=== PATIENT | female | born 2005 | race Two or more races ===

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

== ENCOUNTER → 2023-02-08 | Outpatient (CLI) | payer BC, MEDICAID, OTHER ==
[2023-02-08 11:11] LABS: HEMATOCRIT 36.8 % (36.0-47.0); HEMOGLOBIN 12.5 g/dl (12.0-15.5); MEAN CORPUSCULAR HEMOGLOBIN 31.6 pg (27.0-33.0); MEAN CORPUSCULAR VOLUME 92.9 fl (80.0-96.0); PLATELET COUNT, AUTOMATED 212 10^3/uL (150-450); RED BLOOD COUNT 3.96 10^6/uL (4.00-5.40)
[2023-02-08 11:40] LABS: TOTAL PROTEIN,RANDOM URINE 65.6 MG/DL (0.0-14.0)
[2023-02-08 11:44] LABS: URIC ACID 4.8 MG/DL (3.1-7.8)
[2023-02-08 11:45] LABS: CREATININE,RANDOM URINE 145.9 MG/DL
[2023-02-08 11:47] LABS: ALBUMIN 2.7 G/DL (3.2-5.2); ALKALINE PHOSPHATASE 155 U/L (46-116); ALT/SGPT 10 U/L (7.0-40); AST/SGOT 15 U/L (<34); BILIRUBIN,DIRECT < 0.1 MG/DL (<0.4); BILIRUBIN,TOTAL 0.4 MG/DL (0.3-1.2); BLOOD UREA NITROGEN 6 MG/DL (9-23); CREATININE FOR GFR 0.45 MG/DL (0.55-1.30); TOTAL PROTEIN 5.6 G/DL (5.7-8.2)
== END ==
LOC: M LAB 10:07
PROVIDERS: ATTEND Obstetrics & Gynecology Obstetrics
DX: O13.3 Gestational [pregnancy-induced] hypertension without significant proteinuria, third trimester (principal)

== ENCOUNTER 2024-01-18 10:55 | Day surgery (SDC) | payer OTHER ==
[~2024-01-18] VITALS: Ht 167.6 cm; Wt 76.2 kg
[~2024-01-18 10:55] MED LIST: AMPH1CAP5 PO
[2024-01-18] MEDS: LR 1,000 ML IV SCH (11:26)
[2024-01-18] MEDS ORDERED: MIDAZOLAM INJ 2MG/2ML VIAL As Ordered ONE (11:46)
[2024-01-18] MEDS ORDERED: propofoL 200 MG/20 ML VIAL As Ordered ONE (11:46)
[2024-01-18] MEDS ORDERED: fentaNYL 100 MCG/2 ML INJECTION As Ordered ONE (11:46)
[2024-01-18] MEDS ORDERED: ONDANSETRON 4MG 2ML VIAL As Ordered ONE (11:47)
[2024-01-18] MEDS ORDERED: ROCURONIUM BROMIDE 50MG/5ML VIAL As Ordered ONE (11:47)
[2024-01-18] MEDS ORDERED: LIDOCAINE 2% 100MG/5ML SDV (FOR ANES.) As Ordered ONE (11:47)
[2024-01-18] MEDS ORDERED: dexmedeTOMIDine (4MCG/ML)200MCG/50ML BTL (PRECEDEX) As Ordered ONE (12:26)
[2024-01-18] MEDS ORDERED: SUGAMMADEX SODIUM 500 MG/5 ML VIAL (BRIDION) As Ordered ONE (12:43)
[2024-01-18] MEDS ORDERED: MEPERIDINE 25 MG/ML 1ML VIAL IV PRN (13:15)
[2024-01-18] MEDS ORDERED: LR 1,000 ML IV SCH ×2 (13:15→13:35)
[2024-01-18] MEDS ORDERED: METOCLOPRAMIDE INJ 10MG/2ML VIAL IV PRN (13:15)
[2024-01-18] MEDS ORDERED: ONDANSETRON 4MG 2ML VIAL IV PRN (13:15)
[2024-01-18] MEDS ORDERED: diphenhydrAMINE 50MG/ML VIAL IV PRN (13:15)
[2024-01-18] MEDS ORDERED: fentaNYL 100 MCG/2 ML INJECTION IV PRN (13:15)
[2024-01-18] MEDS ORDERED: HYDROcodone/APAP LIQUID 7.5-325MG 15ML UDC (LORTAB ELIXIR) PO PRN (13:35)
[2024-01-18] MEDS: HYDROMORPHONE HCL 0.5 MG/ 0.5 ML SYRINGE IV PRN (13:35)
[2024-01-18] MEDS: oxyCODONE 5MG TAB PO PRN (14:29)
[2024-01-18 14:45] VITALS: BP 132/76; TEMP 98.4; O2SAT 100
== END 2024-01-18 15:12 | disposition home or self-care (01) ==
LOC: M SDC 10:55
PROVIDERS: ATTEND Otolaryngology
DX: J35.03 Chronic tonsillitis and adenoiditis (principal); F41.9 Anxiety disorder, unspecified; G43.909 Migraine, unspecified, not intractable, without status migrainosus; Z79.899 Other long term (current) drug therapy
CPT/HCPCS: 42826; 88302; J0665; J1100; J1170; J2250; J2405; J3010

== ENCOUNTER 2024-01-18 17:03 | Observation (INO) | payer OTHER ==
[~2024-01-18] VITALS: Ht 170.2 cm; Wt 72.7 kg
[2024-01-18] MEDS: NS 500 ML IV ONE (17:40)
[2024-01-18] MEDS: HYDROMORPHONE HCL 0.5 MG/ 0.5 ML SYRINGE IV ONE (17:55)
[2024-01-18] MEDS ORDERED: HOME MED LIST COMPLETE! XX SCH (19:15)
[2024-01-18] MEDS: LORazepam 2 MG/ML 1ML VIAL IV STA (19:22)
[2024-01-18] MEDS ORDERED: HYDROcodone/APAP LIQUID 7.5-325MG 15ML UDC (LORTAB ELIXIR) PO PRN (20:05)
[2024-01-18] MEDS: LR 1,000 ML IV SCH (20:05)
[2024-01-18 20:09] LABS: HEMATOCRIT 38.9 % (36.0-47.0); HEMOGLOBIN 13.7 g/dl (12.0-15.5); MEAN CORPUSCULAR HEMOGLOBIN 31.3 pg (27.0-33.0); MEAN CORPUSCULAR HGB CONC 35.2 g/dl (32.0-36.5); MEAN CORPUSCULAR VOLUME 88.8 fl (80.0-96.0); PLATELET COUNT, AUTOMATED 294 10^3/uL (150-450); RED BLOOD COUNT 4.38 10^6/uL (4.00-5.40); WHITE BLOOD COUNT 11.7 10^3/uL (4.0-10.0)
[2024-01-18] MEDS ORDERED: hydrOXYzine 10MG/5ML SYRUP PO PRN (20:10)
[2024-01-18] MEDS ORDERED: ACETAMINOPHEN 325MG/10.15ML UDC GT PRN (20:15)
[2024-01-18 20:26] LABS: INR 1.11
[2024-01-18 20:30] VITALS: BP 142/88; TEMP 99.7; O2SAT 96
[2024-01-18 20:39] LABS: ALBUMIN 4.5 G/DL (3.2-5.2); ALKALINE PHOSPHATASE 60 U/L (46-116); ALT/SGPT 14 U/L (7.0-40); AST/SGOT 19 U/L (<34); BLOOD UREA NITROGEN 10 MG/DL (9-23); CALCIUM LEVEL 9.7 MG/DL (8.5-10.1); CARBON DIOXIDE LEVEL 22 MMOL/L (20-31); CHLORIDE LEVEL 109 MMOL/L (98-107); CREATININE FOR GFR 0.55 MG/DL (0.55-1.30); GLUCOSE, FASTING 112 MG/DL (60-100); MAGNESIUM LEVEL 1.9 MG/DL (1.8-2.4); SODIUM LEVEL 141 MMOL/L (136-145); TOTAL PROTEIN 7.3 G/DL (5.7-8.2)
[2024-01-18 21:01] LABS: HCG, SERUM QUALITATIVE NEGATIVE (NEGATIVE)
[2024-01-18] MEDS: KETOROLAC 30 MG/ML 1ML VIAL IV SCH (21:06)
[2024-01-18] MEDS: HYDROcodone/APAP LIQUID 7.5-325MG 15ML UDC (LORTAB ELIXIR) PO PRN (23:48)
[2024-01-19] VITALS (7 sets, daily range): BP systolic 123–133; BP diastolic 67–86; TEMP 96.6–98.3; O2SAT 97–100
[2024-01-19] MEDS ORDERED: ACETAMINOPHEN 325MG/10.15ML UDC PO PRN (03:45)
[2024-01-19] MEDS ORDERED: HYDROcodone/APAP LIQUID 7.5-325MG 15ML UDC (LORTAB ELIXIR) PO ONE (03:45)
[2024-01-19] MEDS ORDERED: HYDROMORPHONE HCL 0.5 MG/ 0.5 ML SYRINGE IV PRN (04:00)
[2024-01-19] MEDS: ACETAMINOPHEN *IV* 1,000 MG in IV 1 EA IV ONE (04:21)
[2024-01-19] MEDS: HYDROMORPHONE HCL 0.5 MG/ 0.5 ML SYRINGE IV PRN (05:22)
[2024-01-19 07:18] LABS: HEMATOCRIT 35.1 % (36.0-47.0); HEMOGLOBIN 12.3 g/dl (12.0-15.5); MEAN CORPUSCULAR HEMOGLOBIN 31.6 pg (27.0-33.0); MEAN CORPUSCULAR VOLUME 90.2 fl (80.0-96.0); PLATELET COUNT, AUTOMATED 255 10^3/uL (150-450); RED BLOOD COUNT 3.89 10^6/uL (4.00-5.40); WHITE BLOOD COUNT 10.5 10^3/uL (4.0-10.0)
[2024-01-19 07:37] LABS: BLOOD UREA NITROGEN 10 MG/DL (9-23); CALCIUM LEVEL 9.2 MG/DL (8.5-10.1); CARBON DIOXIDE LEVEL 23 MMOL/L (20-31); CHLORIDE LEVEL 109 MMOL/L (98-107); CREATININE FOR GFR 0.53 MG/DL (0.55-1.30); GLUCOSE, FASTING 91 MG/DL (60-100); POTASSIUM SERUM 3.9 MMOL/L (3.5-5.1); SODIUM LEVEL 141 MMOL/L (136-145)
[2024-01-19] MEDS: ONDANSETRON 4MG 2ML VIAL IV PRN (09:43)
[2024-01-19] MEDS: IBUPROFEN 100MG 5ML SUSP UDC DYE FREE PO SCH (12:43)
[2024-01-19] MEDS ORDERED: HYDROcodone/APAP LIQUID 7.5-325MG 15ML UDC (LORTAB ELIXIR) PO PRN (20:50)
[2024-01-19] MEDS: HYDROcodone/APAP LIQUID 7.5-325MG 15ML UDC (LORTAB ELIXIR) PO PRN (22:00)
[2024-01-20] VITALS: BP 121/73; TEMP 97.3; O2SAT 99
[2024-01-20] MEDS: IBUPROFEN 100MG 5ML SUSP UDC DYE FREE PO PRN (00:24)
[2024-01-20 04:00] VITALS: BP 123/71; TEMP 98; O2SAT 98
[2024-01-20 08:00] VITALS: BP 145/83; TEMP 98.5; O2SAT 99
[2024-01-20] MEDS ORDERED: IBUP-1824 PO (10:36)
[2024-01-20] MEDS ORDERED: IBUPROFEN 100MG 5ML SUSP UDC DYE FREE PO PRN (12:35)
[2024-01-20] MEDS ORDERED: ONDA4TAB6 PO (23:54)
== END 2024-01-20 12:07 | disposition home or self-care (01) ==
LOC: M ED 17:03 → M ED INP 18:59 → M PED 20:30
PROVIDERS: ADMIT Internal Medicine; ATTEND Internal Medicine
DX: J95.830 Postprocedural hemorrhage of a respiratory system organ or structure following a respiratory system procedure (principal); G89.18 Other acute postprocedural pain; R13.10 Dysphagia, unspecified; F41.9 Anxiety disorder, unspecified; F90.9 Attention-deficit hyperactivity disorder, unspecified type; Z79.899 Other long term (current) drug therapy
CPT/HCPCS: 36415; 70490; 80048; 80053; 83735; 84703; 85027; 85610; 93041; 96365; 96375; 96376; 99285; J0131; J1170; J1885; J2060; J2405

== ENCOUNTER 2024-01-20 20:33 | Emergency (ER) | payer OTHER ==
[~2024-01-20] VITALS: Ht 167.6 cm; Wt 77.6 kg
[~2024-01-20 20:33] MED LIST changes: +IBUP-1824 PO
[2024-01-20] MEDS: KETOROLAC 30 MG/ML 1ML VIAL IV ONE (22:17)
[2024-01-20] MEDS: ONDANSETRON 4MG 2ML VIAL IV ONE (22:18)
[2024-01-20 22:28] LABS: BASO % 0.6 % (0.0-1.0); EOS # 0.1 10^3/uL (0.0-0.5); EOS % 1.2 % (0.0-3.0); HEMATOCRIT 34.3 % (36.0-47.0); LYMPH # 2.2 10^3/uL (1.5-5.0); MEAN CORPUSCULAR HEMOGLOBIN 31.4 pg (27.0-33.0); MEAN CORPUSCULAR VOLUME 89.8 fl (80.0-96.0); MONO # 0.6 10^3/uL (0.0-0.8); MONO % 9.5 % (2.0-8.0); NEUTROPHILS # 3.7 10^3/uL (1.5-8.5); NEUTROPHILS % 55.5 % (36.0-66.0); PLATELET COUNT, AUTOMATED 213 10^3/uL (150-450); RED BLOOD COUNT 3.82 10^6/uL (4.00-5.40); WHITE BLOOD COUNT 6.6 10^3/uL (4.0-10.0)
[2024-01-20] MEDS ORDERED: ONDA4TAB6 PO (23:54)
[2024-01-20 23:55] VITALS: BP 144/98; TEMP 98.2; O2SAT 99
[2024-01-20] MEDS: ONDANSETRON 4MG ORAL DISINTEGRATING TAB PO ONE (23:59)
== END 2024-01-21 00:01 | disposition home or self-care (01) ==
LOC: M ED 20:33
DX: G89.18 Other acute postprocedural pain (principal); Z79.1 Long term (current) use of non-steroidal anti-inflammatories (NSAID); Z79.899 Other long term (current) drug therapy
CPT/HCPCS: 80047; 85025; 96374; 96375; 99284; J1885; J2405

== ENCOUNTER 2024-01-29 22:27 | Observation (INO) | payer OTHER ==
[~2024-01-29] VITALS: Ht 167.6 cm; Wt 73.4 kg
[2024-01-29] MEDS: OXYMETAZOLINE 0.05% NASAL SPRAY (AFRIN) As Ordered ONE (00:28)
[~2024-01-29 22:27] MED LIST changes: +ONDA4TAB6 PO
[2024-01-29] MEDS: NS 1,000 ML IV ONE (23:32)
[2024-01-29] MEDS: MORPHINE 2 MG/ML 1ML VIAL IV ONE (23:33)
[2024-01-29] MEDS: ONDANSETRON 4MG 2ML VIAL IV ONE (23:33)
[2024-01-29 23:36] LABS: BASO % 0.5 % (0.0-1.0); EOS # 0.1 10^3/uL (0.0-0.5); EOS % 1.6 % (0.0-3.0); HEMOGLOBIN 12.3 g/dl (12.0-15.5); LYMPH # 2.2 10^3/uL (1.5-5.0); LYMPH % 29.6 % (24.0-44.0); MEAN CORPUSCULAR HEMOGLOBIN 31.4 pg (27.0-33.0); MEAN CORPUSCULAR HGB CONC 35.1 g/dl (32.0-36.5); MEAN CORPUSCULAR VOLUME 89.3 fl (80.0-96.0); MONO # 0.6 10^3/uL (0.0-0.8); MONO % 8.7 % (2.0-8.0); NEUTROPHILS # 4.4 10^3/uL (1.5-8.5); NEUTROPHILS % 59.5 % (36.0-66.0); PLATELET COUNT, AUTOMATED 274 10^3/uL (150-450); RED BLOOD COUNT 3.92 10^6/uL (4.00-5.40); WHITE BLOOD COUNT 7.3 10^3/uL (4.0-10.0)
[2024-01-29] MEDS: dexAMETHasone 20MG/5ML VIAL IV ONE (23:40)
[2024-01-29] MEDS ORDERED: propofoL 200 MG/20 ML VIAL As Ordered ONE (23:40)
[2024-01-29] MEDS ORDERED: SUCCINYLCHOLINE 100MG/5ML SYRINGE As Ordered ONE (23:40)
[2024-01-29] MEDS ORDERED: MIDAZOLAM INJ 2MG/2ML VIAL As Ordered ONE (23:40)
[2024-01-29] MEDS ORDERED: fentaNYL 100 MCG/2 ML INJECTION As Ordered ONE (23:41)
[2024-01-29] MEDS ORDERED: LIDOCAINE W/EPINEPHRINE 1% 20ML VIAL As Ordered ONE (23:47)
[2024-01-29 23:55] LABS: INR 1.18; PARTIAL THROMBOPLASTIN TIME 28.2 SECONDS (24.8-34.2); PROTHROMBIN TIME 14.7 SECONDS (12.5-14.5)
[2024-01-29] MEDS ORDERED: LIDOCAINE 2% 100MG/5ML SDV (FOR ANES.) As Ordered ONE (23:57)
[2024-01-30] VITALS (7 sets, daily range): BP systolic 122–139; BP diastolic 62–79; TEMP 97.8–98.7; O2SAT 95–100
[2024-01-30 00:01] LABS: BLOOD UREA NITROGEN 16 MG/DL (9-23); CALCIUM LEVEL 9.5 MG/DL (8.5-10.1); CARBON DIOXIDE LEVEL 26 MMOL/L (20-31); CHLORIDE LEVEL 105 MMOL/L (98-107); CREATININE FOR GFR 0.54 MG/DL (0.55-1.30); GLUCOSE, FASTING 98 MG/DL (60-100); POTASSIUM SERUM 3.7 MMOL/L (3.5-5.1); SODIUM LEVEL 138 MMOL/L (136-145)
[2024-01-30] MEDS: HYDROMORPHONE HCL 0.5 MG/ 0.5 ML SYRINGE IV PRN (01:25)
[2024-01-30] MEDS: LR 1,000 ML IV SCH (01:25)
[2024-01-30] MEDS ORDERED: HYDROcodone/APAP LIQUID 7.5-325MG 15ML UDC (LORTAB ELIXIR) PO PRN (01:25)
[2024-01-30] MEDS ORDERED: ACETAMINOPHEN 325MG/10.15ML UDC PO PRN (02:10)
[2024-01-30] MEDS: ACETAMINOPHEN *IV* 1,000 MG in IV 1 EA IV ONE (02:54)
[2024-01-30 06:18] LABS: HEMATOCRIT 28.6 % (36.0-47.0); MEAN CORPUSCULAR HEMOGLOBIN 31.3 pg (27.0-33.0); MEAN CORPUSCULAR VOLUME 89.4 fl (80.0-96.0); PLATELET COUNT, AUTOMATED 255 10^3/uL (150-450); WHITE BLOOD COUNT 7.8 10^3/uL (4.0-10.0)
[2024-01-30 06:45] LABS: ALBUMIN 3.7 G/DL (3.2-5.2); ALKALINE PHOSPHATASE 46 U/L (46-116); ALT/SGPT 21 U/L (7.0-40); AST/SGOT 12 U/L (<34); BILIRUBIN,TOTAL 0.4 MG/DL (0.3-1.2); BLOOD UREA NITROGEN 22 MG/DL (9-23); CALCIUM LEVEL 8.3 MG/DL (8.5-10.1); CARBON DIOXIDE LEVEL 24 MMOL/L (20-31); CHLORIDE LEVEL 108 MMOL/L (98-107); CREATININE FOR GFR 0.45 MG/DL (0.55-1.30); GLUCOSE, FASTING 124 MG/DL (60-100); MAGNESIUM LEVEL 1.6 MG/DL (1.8-2.4); POTASSIUM SERUM 4.7 MMOL/L (3.5-5.1); SODIUM LEVEL 138 MMOL/L (136-145); TOTAL PROTEIN 5.9 G/DL (5.7-8.2)
[2024-01-30] MEDS: HYDROcodone/APAP LIQUID 7.5-325MG 15ML UDC (LORTAB ELIXIR) PO PRN (07:58)
[2024-01-30] MEDS ORDERED: HYDR-3715 PO (10:46)
== END 2024-01-30 11:28 | disposition home or self-care (01) ==
LOC: M ED 22:27 → M SDC 23:44 → M ED INP 01-30 01:21 → M PED 01-30 02:00
PROVIDERS: ADMIT Family Medicine; ATTEND Otolaryngology
DX: J95.830 Postprocedural hemorrhage of a respiratory system organ or structure following a respiratory system procedure (principal); D62 Acute posthemorrhagic anemia; R00.0 Tachycardia, unspecified; R42 Dizziness and giddiness; F41.9 Anxiety disorder, unspecified; F90.9 Attention-deficit hyperactivity disorder, unspecified type; Z79.899 Other long term (current) drug therapy; Z82.0 Family history of epilepsy and other diseases of the nervous system
CPT/HCPCS: 36415; 42962; 80048; 80053; 83735; 85025; 85027; 85610; 85730; 86850; 86900; 86901; 96361; 96374; 96375; 99284; J0131; J0330; J1100; J1170; J2250; J2405; J3010

== ENCOUNTER 2024-10-15 22:05 | Emergency (ER) | payer OTHER ==
[~2024-10-15] VITALS: Ht 170.2 cm; Wt 72.5 kg
[~2024-10-15 22:05] MED LIST changes: +HYDR-3715 PO; +ONDA-282 PO; -ONDA4TAB6 PO
[2024-10-15 22:08] VITALS: BP 139/89; TEMP 97.5; O2SAT 99
[2024-10-15] MEDS ORDERED: AMPH1CAP5 (22:20)
[2024-10-16] MEDS: IBUPROFEN 600MG TAB PO ONE (00:39)
[2024-10-16] MEDS ORDERED: ARTH650T23 PO (02:36)
[2024-10-16] MEDS ORDERED: NAPR1TAB83 PO (02:36)
== END 2024-10-16 02:46 | disposition home or self-care (01) ==
LOC: M ED 22:05
DX: S83.422A Sprain of lateral collateral ligament of left knee, initial encounter (principal); Y92.39 Other specified sports and athletic area as the place of occurrence of the external cause; Y93.9 Activity, unspecified; Y99.9 Unspecified external cause status; I10 Essential (primary) hypertension; Z79.1 Long term (current) use of non-steroidal anti-inflammatories (NSAID); Z79.899 Other long term (current) drug therapy

== ENCOUNTER → 2024-11-24 | Outpatient (CLI) | payer OTHER ==
[~2024-11-24] MED LIST changes: +AMPH1CAP5; +ARTH650T23 PO; +NAPR1TAB83 PO
== END ==
LOC: M RAD 07:18
PROVIDERS: ATTEND Physician Assistant
DX: M25.562 Pain in left knee (principal)

== ENCOUNTER 2025-01-06 07:49 | Day surgery (SDC) | payer OTHER ==
[~2025-01-06] VITALS: Ht 170.2 cm; Wt 74.8 kg
[2025-01-06 09:21] LABS: HCG, SERUM QUALITATIVE NEGATIVE (NEGATIVE)
[2025-01-06] MEDS ORDERED: fentaNYL 100 MCG/2 ML INJECTION As Ordered ONE (09:45)
[2025-01-06] MEDS ORDERED: MIDAZOLAM INJ 2MG/2ML VIAL As Ordered ONE (09:45)
[2025-01-06] MEDS ORDERED: HYDROmorphone HCL 2MG/ML 1ML VIAL As Ordered ONE (09:45)
[2025-01-06] MEDS ORDERED: KETOROLAC 30 MG/ML 1ML VIAL As Ordered ONE (09:46)
[2025-01-06] MEDS ORDERED: METOCLOPRAMIDE INJ 10MG/2ML VIAL As Ordered ONE (09:46)
[2025-01-06] MEDS ORDERED: propofoL 200 MG/20 ML VIAL As Ordered ONE (09:46)
[2025-01-06] MEDS ORDERED: ONDANSETRON 4MG 2ML VIAL As Ordered ONE (09:46)
[2025-01-06] MEDS ORDERED: LIDOCAINE 2% 100MG/5ML SDV (FOR ANES.) As Ordered ONE (09:46)
[2025-01-06] MEDS ORDERED: ACETAMINOPHEN 1000MG/100ML IV BAG As Ordered ONE (09:47)
[2025-01-06] MEDS: LR 1,000 ML IV SCH (09:55)
[2025-01-06] MEDS: dexAMETHasone 10MG/1ML VIAL PRES.FREE PN ONE (09:55)
[2025-01-06] MEDS: ROPIvacaine 0.5% 30ML VIAL PN ONE (09:55)
[2025-01-06] MEDS: LIDOCAINE 1% SDV 5ML VIAL PN ONE (09:55)
[2025-01-06] MEDS: MIDAZOLAM INJ 2MG/2ML VIAL IV PRN (09:55)
[2025-01-06] MEDS: fentaNYL 100 MCG/2 ML INJECTION IV PRN (09:55)
[2025-01-06] MEDS: ceFAZolin SOD 2 GM IV ONCE IV ONE (10:19)
[2025-01-06] MEDS: TRANEXAMIC ACID 100 MG/ML 10ML VIAL As Ordered ONE (10:24)
[2025-01-06] MEDS: VANCOMYCIN 1000MG/20ML VIAL As Ordered ONE (11:10)
[2025-01-06] MEDS ORDERED: dexmedeTOMIDine (4MCG/ML)200MCG/50ML BTL (PRECEDEX) As Ordered ONE (12:13)
[2025-01-06] MEDS ORDERED: LABETALOL 100MG/20ML VIAL As Ordered ONE (12:19)
[2025-01-06] MEDS: ROPIvacaine 0.5% 30ML VIAL As Ordered ONE (12:50)
[2025-01-06] MEDS: EPINEPHrine 1MG/ML INJ 30ML MD-VIAL As Ordered ONE (12:53)
[2025-01-06] MEDS ORDERED: LR 1,000 ML IV SCH (13:10)
[2025-01-06] MEDS ORDERED: fentaNYL 100 MCG/2 ML INJECTION IV PRN (13:10)
[2025-01-06] MEDS ORDERED: ONDANSETRON 4MG 2ML VIAL IV PRN (13:10)
[2025-01-06] MEDS ORDERED: PERCOCET PO (13:14)
[2025-01-06] MEDS ORDERED: ECOT81TA5 PO (13:14)
[2025-01-06] MEDS ORDERED: oxyCODONE 5MG TAB PO PRN (13:35)
[2025-01-06] MEDS: oxyCODONE 5MG TAB PO ONE (13:36)
[2025-01-06] MEDS ORDERED: oxyCODONE 10 MG CR TAB PO ONE (13:45)
[2025-01-06 15:05] VITALS: BP 123/75; TEMP 98.1; O2SAT 98
== END 2025-01-06 15:32 | disposition home or self-care (01) ==
LOC: M SDC 07:49
PROVIDERS: ATTEND Neuromusculoskeletal Medicine, Sports Medicine
DX: S83.512A Sprain of anterior cruciate ligament of left knee, initial encounter (principal); S83.242A Other tear of medial meniscus, current injury, left knee, initial encounter; M65.962 Unspecified synovitis and tenosynovitis, left lower leg; M94.262 Chondromalacia, left knee; X58.XXXA Exposure to other specified factors, initial encounter; Y92.9 Unspecified place or not applicable; Y93.9 Activity, unspecified; Y99.9 Unspecified external cause status; Z79.899 Other long term (current) drug therapy
CPT/HCPCS: 29876; 29882; 29888; 84703; 97116; 97161; C1713; J0131; J0171; J0690; J1100; J1171; J1885; J1920; J2250; J2405; J2765; J2795; J3010; J3370

== ENCOUNTER → 2025-01-16 | Outpatient (CLI) | payer OTHER ==
[~2025-01-16] MED LIST changes: +ECOT81TA5 PO; +PERCOCET PO
== END ==
LOC: M SOG 07:51
PROVIDERS: ATTEND Physician Assistant
DX: Z47.89 Encounter for other orthopedic aftercare (principal); S83.512A Sprain of anterior cruciate ligament of left knee, initial encounter; M25.562 Pain in left knee; W18.30XA Fall on same level, unspecified, initial encounter; Y92.009 Unspecified place in unspecified non-institutional (private) residence as the place of occurrence of the external cause